=== PATIENT | male | born 1965 | race Caucasian/White ===

== ENCOUNTER 2017-08-29 23:14 | Emergency (ER) | payer BC ==
[~2017-08-29] VITALS: Ht 180.3 cm; Wt 81.6 kg
--- NOTE | 2017-08-29 23:25 | Emergency Room Report ---
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 He presents with right ankle pain. He twisted his ankle this afternoon while he was in his yard. Initially didn't hurt that much he was able to walk without a problem. Tonight it became more painful when he stepped down. Hard time bearing weight. Pain is 8 out of 10. Worse with ambulation. Better with rest. No swelling. No fever or chills. No other injury. Allergies: Coded Allergies: No Known Allergies (Unverified , 08/29/17) Patient History Past Medical History: see triage record, old chart reviewed Past Surgical History: other Pertinent Family History: none Social History: Denies: smoking Immunizations: other Reviewed Nursing Documentation: PMH: Agreed; PSxH: Agreed Nursing Documentation-PMH Past Medical History: No Stated History Review of Systems Eye: Denies: eye pain, blurred vision ENT: Denies: ear pain, nose congestion, throat swelling Respiratory: Denies: cough, shortness of breath Cardiovascular: Denies: chest pain, palpitations Gastrointestinal: Denies: abdominal pain, diarrhea, nausea, vomiting Musculoskeletal: Reports: joint pain; Denies: back pain Skin: Denies: rash Neurological: Denies: headache, numbness Endocrine: Denies: increased thirst, increased urine Hematologic/Lymphatic: Denies: easy bruising All Other Systems: negative except mentioned in HPI Physical Exam Vital Signs Date Time Temp Pulse Resp B/P (MAP) Pulse Ox O2 Delivery O2 Flow Rate FiO2 08/29/17 23:18 98.6 81 16 123/80 94 Room Air 98.6 vitals normal Sp02 EP Interpretation: reviewed, normal General Appearance: well appearing, no apparent distress, alert Head: normocephalic, atraumatic Eyes: bilateral eye PERRL, bilateral eye EOMI ENT: hearing grossly normal, normal pharynx Neck: full range of motion, supple, no meningismus Respiratory: chest non-tender, lungs clear, normal breath sounds Cardiovascular #1: regular rate, rhythm, no murmur Gastrointestinal: normal bowel sounds, non tender, no mass, no organomegaly, no bruit, non-distended Musculoskeletal: back normal, normal range of motion, tender - Right ankle: There is tenderness to the lateral aspect of the ankle. No edema. Pulses normal. Ankle stable. Neurologic: alert, oriented x3 Psychiatric: mood/affect normal Skin: warm/dry Procedures Splinting Splinting : Consent: Verbal Pre-Made Type: aircast Pre-Proc Neuro Vasc Exam: normal Post-Proc Neuro Vasc Exam: normal Patient Tolerated: Well Complications: None Medical Decision Making Diagnostic Impression: Primary Impression: Right ankle sprain Qualified Codes: S93.491A - Sprain of other ligament of right ankle, initial encounter ER Course Patient present with an ankle sprain. No fracture or dislocation. We'll discharge home. Other X-Ray Diagnostic Results Other X-Ray Diagnostic Results : X-Ray ordered: right ankle x-rays # of Views/Limited Vs Complete: 3 View Indication: Pain EP Interpretation: Yes Interpretation: no dislocation, no soft tissue swelling, no fractures Impression: No acute disease Electronically Signed by: Kiko Chatman MD Last Vital Signs Date Time Temp Pulse Resp B/P (MAP) Pulse Ox O2 Delivery O2 Flow Rate FiO2 08/29/17 23:18 98.6 81 16 123/80 94 Room Air 98.6 Status: improved Disposition: HOME, SELF-CARE Condition: Stable Scripts Ibuprofen* (MOTRIN*) 600 Mg Tablet 600 MG ORAL THREE TIMES A DAY, #30 TAB 0 Refills Prov: KIKO CHATMAN M.D. 08/29/17 Patient Instructions: Ankle Sprain Additional Instructions: Follow-up with your doctor in 7 days. You may need an MRI of not better. Return of worse. Weightbearing as tolerated. KIKO CHATMAN M.D. Aug 29, 2017 23:25
[2017-08-29 23:45] VITALS: BP 123/80
[2017-08-29] MEDS ORDERED: IBUPROFEN600 MG ORAL (23:46)
--- NOTE | 2017-08-30 11:11 | Diagnostic Imaging Report ---
Indication: Pain right ankle ankle pain/trauma Comparison: None Findings: 3 views of the right ankle obtained. No acute fracture, malalignment, periostitis, or osteochondral defects are identified. Soft tissues are unremarkable. Impression: Negative examination
== END 2017-08-30 00:24 | disposition home or self-care (01) ==
LOC: EMR 23:25
DX: S93.401A Sprain of unspecified ligament of right ankle, initial encounter (principal); X50.1XXA Overexertion from prolonged static or awkward postures, initial encounter; Y92.096 Garden or yard of other non-institutional residence as the place of occurrence of the external cause
CPT/HCPCS: 29515; 99283